=== PATIENT | female | born 1965 | race Caucasian/White ===

== ENCOUNTER 2017-06-16 06:05 | Day surgery (SDC) | payer OTHER ==
--- NOTE | 2017-06-12 18:53 | CONS ---
Date/Time of Note Date/Time of Note DATE: 06/12/17 TIME: 18:46 Assessment/Plan Assessment/Plan Problems: (1) Pre-op evaluation Status: Acute Comment: At this time I find Ms. Toth to be an acceptable surgical candidate and concur with your plans to proceed with surgery. She is at average surgical risk as compared to her age-matched peers and using the modified Reynolds's criteria she is at low to intermediate risk. She should do well using all standard and routine anesthesia precautions. (2) Injury of left Achilles tendon Status: Acute Comment: He is appropriate for intervention and cleared for surgery Qualifiers: Qualified Code: S86.002A - Injury of left Achilles tendon, initial encounter (3) Closed left ankle fracture Status: Acute Comment: She is appropriate for intervention and is cleared for surgery Qualifiers: Qualified Code: S82.892A - Closed fracture of left ankle, initial encounter Consultation Date/Type/Reason Admit Date/Time June 16, 2017 Date of Consultation: Jun 12, 2017 Type of Consultation: Preoperative-internal medicine Reason for Consultation Preoperative Referring Provider: REED VÁZQUEZ MD Hx of Present Illness Generally healthy 51-year-old female with a closed left ankle fracture being brought in for elective surgical repair. He had been a usual state of health and while attending a wedding was dancing with the festivities. She had a slip and fall with left ankle fracture and Achilles tendon disruption. Is in a hard brace and is seen for preop clearance. Medications; 1) levothyroxine 88 mcg a day, 2) progesterone 100 mg p.o. nightly , 3) Vivelle-Dot 0.05 topically daily Constitutional: no complaints Eyes: no complaints ENT: no complaints Respiratory: no complaints Cardiovascular: no complaints Gastrointestinal: no complaints Genitourinary: no complaints Musculoskeletal: other (Pain and limited range of motion at the left ankle) Skin: no complaints Neurologic: no complaints Endocrine: no complaints Lymphatic: no complaints Psychological: nl mood/affect, no complaints Immunologic: no complaints Past Medical History Medical History: hypothyroid, other (Allergic rhinitis; new left ankle fracture with left Achilles tendon disruption; menopausal syndrome) Past Surgical History Past Surgical Hx: other (Status post left hemithyroidectomy 2013-benign) Family History Significant Family History: no pertinent family hx (No history of anesthesia reactions) Social History Alcohol Use: rarely Smoking Status: Never smoker Drug Use: none Other Social History Born in [facility] and raised here [place] degree without experience. 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 [employer] Exam/Review of Systems Vital Signs Vitals Height 5 feet 7 weight 130 blood pressure 114/72 pulse 72 temperature is 98.3 respirations 18 Exam Constitutional: alert, oriented, well developed Head: atraumatic, normocephalic Eyes: EOMI, nl conjunctiva, nl lids ENMT: mucosa pink and moist, nl external ears & nose, nl lips & teeth, nl nasal mucosa & septum Neck: non-tender, other (Surgical scar), supple Respiratory: clear to auscultation, normal air movement Cardiovascular: nl pulses, regular rate and rhythm Gastrointestinal: nl liver, spleen, non-tender, soft Extremities: normal pulses, other (Left lower extremity in full boot) Neurological: [employer] II-XII intact, nl mental status, nl speech, nl strength Skin: nl turgor, rash or lesions Lymph: nl lymph nodes Additional Comments Comprehensive metabolic panel within normal limits white count 4.1 hemoglobin 13.4 hematocrit 43.8 platelet count 306 pro time 11.1 with an INR of 0.93 PTT is 25 seconds urinalysis shows trace blood small leukocyte EKG demonstrates sinus rhythm at 67 with intervals 0.1 6.09.4 130 axis normal morphology chest x -ray is unremarkable Copies To: CC: REED VÁZQUEZ MD, JOSHUA A MD Jun 12, 2017 18:53
[2017-06-13 13:14] VITALS: BMI 20.7
[2017-06-16] VITALS (13 sets, daily range): BP systolic 108–123; BP diastolic 56–70; PULSE 54–70; RESP 16–30; Ht 170.2 cm; Wt 59.0 kg
[~2017-06-16] VITALS: Ht 170.2 cm; Wt 59.0 kg
[~2017-06-16 06:05] MED LIST: ESTR1PAT88 TRANSDERM; LEVO88TA PO; PROG100C3 PO
[2017-06-16] MEDS ORDERED: ACETAMINOPHEN 1000 MG/100 ML IVPB ONE (07:00)
[2017-06-16] MEDS ORDERED: DESFLURANE 15 MIN ONE (07:00)
[2017-06-16] MEDS ORDERED: EPHEDrine SULFATE 50 MG/5 ML SYG ONE (07:00)
[2017-06-16] MEDS ORDERED: POLYMYXIN/BACITRACIN 1L IRRIG ONE (07:18)
[2017-06-16] MEDS ORDERED: NEOMYC/POLYMYX/BACIT 30 GM OINT ONE (07:18)
[2017-06-16] MEDS ORDERED: BUPIVACAINE 0.5% (SDV) 30 ML INJ ONE (07:18)
[2017-06-16] MEDS ORDERED: ROPIVACAINE 0.5 % 30 ML VIAL ONE ×2 (07:18→07:30)
[2017-06-16] MEDS ORDERED: MIDAZOLAM 1 MG/ML 2 ML INJ ONE (07:30)
[2017-06-16] MEDS ORDERED: BUPIVACAINE 0.25% (MPF) 30 ML INJ ONE (07:31)
--- NOTE | 2017-06-16 07:48 | HPN ---
Date/Time of Note Date/Time of Note DATE: 06/16/17 TIME: 07:48 Interval H&P Admission Note Pt. seen H&P reviewed: No system changes REED VÁZQUEZ MD Jun 16, 2017 07:48
[2017-06-16] MEDS ORDERED: morphine 2 MG INJ IV PRN (08:00)
--- NOTE | 2017-06-16 08:07 | RADRPT ---
PROCEDURE: XR Ankle 3 Views. CLINICAL INDICATION: Left ankle pain and trauma, fracture. TECHNIQUE: AP, oblique and lateral views of the left ankle were performed. COMPARISON: None. FINDINGS: Obliquely oriented, mildly displaced fracture through the lateral malleolus is identified. Mild wid ening of the medial aspect of the ankle mortise is seen. No destructive bony lesions are observed. Mild soft tissue swelling is seen over the lateral malleolus. IMPRESSION: Lateral malleolus fracture. Mild widening of the medial aspect of the ankle mortise and may reflect ankle mortise disruption. Soft tissue swelling over the lateral malleolus. Ligamentous and tendinous injury is not excluded. If characterization of the ligaments and tendons is needed MRI is recommended. If there is high clinical suspicion for bony traumatic injury, further evaluation with CT should be considered. RPTAT: AA .Paco Yap MD, Date Time Electronically viewed and signed by .Paco Yap MD, MD on 06/16/2017 08:07 .P/
--- NOTE | 2017-06-16 08:08 | RADRPT ---
PROCEDURE: XR Foot 3 Views. CLINICAL INDICATION: Left foot pain and trauma. TECHNIQUE: AP, oblique and lateral views of the left foot were obtained. The images were reviewed on a PACS workstation. COMPARISON: None. FINDINGS: Obliquely oriented, mildly displaced fracture through the lateral malleolus is identified. Mild wid ening of the medial aspect of the ankle mortise is seen. The remaining osseous structures appear in tact. No destructive bony lesions are identified. The remaining interosseous spaces are unremarkabl e. Soft tissues surrounding the foot appear unremarkable. IMPRESSION: Lateral malleolus fracture. Widening of the medial aspect of the ankle mortise suggesting ankle mortise disruption. If there is high clinical suspicion for additional traumatic injury, further evaluation with CT shou ld be considered. RPTAT: AA .Paco Yap MD, Date Time Electronically viewed and signed by .Paco Yap MD, on 06/16/2017 08:08 .P/
[2017-06-16] MEDS ORDERED: ONDANSETRON 4 MG INJ ONE (08:15)
[2017-06-16] MEDS ORDERED: DEXAMETHASONE 4 MG/ML 1 ML INJ ONE (08:15)
[2017-06-16] MEDS ORDERED: PROPOFOL 20 ML ONE (08:15)
[2017-06-16] MEDS ORDERED: CEFAZOLIN 1 GM INJ ONE (08:15)
[2017-06-16] MEDS ORDERED: LIDOCAINE 2% (SDV) 5 ML INJ ONE (08:15)
[2017-06-16] MEDS ORDERED: SCOPOLAMINE 1.5 MG PATCH ONE (08:15)
[2017-06-16] MEDS ORDERED: METOCLOPRAMIDE 10 MG INJ ONE (08:15)
[2017-06-16] MEDS ORDERED: ROCURONIUM 50 MG INJ ONE (08:15)
[2017-06-16] MEDS ORDERED: GLYCOPYRROLATE 0.4 MG INJ ONE (09:44)
[2017-06-16] MEDS ORDERED: NEOSTIGMINE 3 MG/3 ML SYRINGE ONE (09:44)
[2017-06-16] MEDS ORDERED: FENTAnyl 50 MCG/ML VIAL ONE (09:44)
[2017-06-16] MEDS ORDERED: PROCHLORPERAZINE 10 MG INJ IV PRN (10:00)
[2017-06-16] MEDS ORDERED: LORAZEPAM 2 MG INJ IV PRN (10:00)
[2017-06-16] MEDS ORDERED: DIPHENHYDRAMINE 50 MG INJ IV PRN (10:00)
[2017-06-16] MEDS ORDERED: FENTAnyl 50 MCG/ML VIAL IV PRN (10:00)
[2017-06-16] MEDS ORDERED: MEPERIDINE 25 MG INJ IV PRN (10:00)
[2017-06-16] MEDS ORDERED: oxyCODONE 5 MG TAB PO PRN ×2 (10:00)
[2017-06-16] MEDS ORDERED: HYDROmorphONE (0.2 MG/ML) 10ML SYG IV PRN ×2 (10:00)
[2017-06-16] MEDS ORDERED: ONDANSETRON 4 MG INJ IV PRN (10:00)
--- NOTE | 2017-06-16 11:00 | OPR ---
Date/Time of Note Date/Time of Note DATE: 06/16/17 TIME: 10:56 Operative Report Procedure Date: Jun 16, 2017 Surgeon Grant Vázquez MD Estimated Blood Loss: minimal Transfusion Required: no Specimen: none Pt Condition Post Procedure: stable Disposition: PACU Procedure Description Preoperative Diagnosis left ankle distal lateral malleolus fracture, syndesmotic disruption Postoperative Diagnosis left ankle distal lateral malleolus fracture, syndesmotic disruption Operation Performed 1. left ankle arthroscopy with extensive debridement 2. Left ankle lateral malleolus open reduction internal fixation 3. . Left ankle syndesmosis open reduction internal fixation Surgeon: GRANT VÁZQUEZ MD Anesthesia Type: general, other (popliteal and saphenous block) Anesthesiologist: Dorcas Candelario MD Tourniquet Time: 75 min at 250 mmHg Estimated Blood Loss: 0 - 10 ml's Transfusion Required: no Grafts/Implants Arthrex Titanium distal fibular locking plate Arthrex Titanium TightRope Complications: no Complications: no Pt Condition Post Procedure: stable Disposition: PACU Indications Patient is a 51-year-old female who sustained a left ankle fracture dislocation and given the amount of displacement was indicated for surgery. Operative\Procedure Findings Risk note: patient was explained the risks of surgery in the patients [facility] language including but not limited to - infection, bleeding, injury to blood vessels, ligaments, and tendons, risk of anesthesia, arthritis and DVT/ Patient acknowledged the risks by signing the surgical consent Procedure Description The patient was met in the preoperative holding area, marked with the correct operative extremity confirmed with both patient and consent. The patient was then brought back in the operative theater, placed supine on operative table, given preoperative antibiotics and preoperative regional block anesthesia. The patient was then placed in the arthroscopic thigh aguilar with all bony prominences well padded with a nonsterile tourniquet placed on the operative extremity. The patient was then prepped and draped in the normal sterile fashion. All parties in the room did a timeout and everyone agreed it was the correct patient, and extremity and procedure. Initial distraction was placed across the joint and the superficial peroneal nerve had been marked out prior to distraction, and using extreme caution to avoid any injury to the neurovascular structures, the anteromedial, anterolateral, and posterolateral portals were created in the standard fashion. The arthroscope was brought into the ankle and a 21-point exam was performed showing extensive hemorrhagic scar tissue and synovitis in the ankle with extensive scar tissue in both the medial, lateral, posterior and anterior gutters. The syndesmosis was extensively debrided. After thorough debridement of the anterior medial, lateral, posterior and anterior gutters. After this was done, the ankle was irrigated thoroughly with normal saline and the arthroscopes were removed. At this point, the thigh aguilar was removed and the patient was well padded under both extremities and patient was then reprepped and draped, and all gloves and instruments were changed. Attention was then turned initially to the distal fibular fracture. An incision was made over the the fibula. The incision was taken down to the fibula with care taken to avoid injury to the neurovascular structures. The fracture was identified and reduced and fixated with a 3.0 mm lag screw and then an Arthrex 6 hole distal fibular plate and fibula was reduced and held out to show that there was fibular length and alignment and rotation had been re -achieved. Once this was shown, the wound was irrigated thoroughly. A manual external rotation stress xray was performed showing syndesmosis widening. A syndesmotic tightrope was then placed across the joint to reduce the syndesmosis. Talar tilt stress xray was performed showing deltoid to be intact stress xrays showed no medial clear space widening or talar tilting All wounds were thoroughly irrigated and closed with initially 2-0 Vicryl, followed by 3-0 Monocryl followed by 3-0 nylon in a vertical mattress fashion. Portal sites were closed with a 4-0 Nylon All wounds were dressed with Xeroform, antibiotic ointment, 4 x 4s, 5 ABDs were placed and the patient was placed in a well-padded short leg splint. Tourniquet had been brought down prior to this and hemostasis had been achieved prior to the wound closure. The wounds were irrigated thoroughly prior to closure as well. All sponge and needle counts were correct. GRANT VÁZQUEZ MD Jun 16, 2017 11:00
--- NOTE | 2017-06-16 11:09 | RADRPT ---
PROCEDURE: Intraoperative imaging of the left ankle with fluoroscopy. CLINICAL INDICATION: Left ankle pain. Intraoperative. TECHNIQUE: 13 images of the left ankle were obtained in the operating room with an image intensifi er. No radiologist was in attendance. Fluoroscopy time is 60 seconds. COMPARISON: Plain radiographs of the left ankle and earlier the same date. FINDINGS: Surgical instruments are noted overlying the left ankle. Images demonstrate open reduction and internal fixation of of the distal fibula oblique fracture wit h a lateral plate screws. There is also a fixation device through the distal shaft tibia. IMPRESSION: 1. Intraoperative imaging of the left ankle. RPTAT: QQ .Henrique Yung MD, MD Date Time Electronically viewed and signed by .Henrique Yung MD, on 06/16/2017 11:09 .R/
--- NOTE | 2017-06-18 09:28 | OPPN ---
Date/Time of Note Date/Time of Note DATE: 06/18/17 TIME: 09:25 Anesthesia Follow up Anesthesia Follow up Last documented vital signs Vital Signs Date Time Temp Pulse Resp B/P Pulse Ox O2 Delivery O2 Flow Rate FiO2 06/16/17 11:50 97.0 64 16 121/56 100 Room Air 06/16/17 10:51 2.0 Respiratory function: WNL Cardiovascular function: WNL Comments Pt contacted at number in EMR. Pt is POD 2 s/p L ankle arthroscopy, lateral malleolus ORIF under GETA with adductor canal block and popliteal sciatic nerve block. Pt is recovering at home and is pain controlled with po medications, no n/v due to anesthesia, after block wore off increased po pain meds, took off scopolamine patch yesterday and now with nausea 2/2 pain. Otherwise pt is tolerating ADLs, tolerating orals, doing well and plans for follow-up visit with Dr. Vo next Friday. No complications from anesthesia. ARNIE KO MD Jun 18, 2017 09:28
== END 2017-06-16 14:05 | disposition home or self-care (01) ==
LOC: SDS 06:05
PROVIDERS: ATTEND Orthopaedic Surgery
DX: S82.892A Other fracture of left lower leg, initial encounter for closed fracture (principal); S82.62XD Displaced fracture of lateral malleolus of left fibula, subsequent encounter for closed fracture with routine healing; X58.XXXD Exposure to other specified factors, subsequent encounter; E03.9 Hypothyroidism, unspecified
CPT/HCPCS: 27792; 29898; 73610; 73630; 82306; J0131; J0690; J1100; J2250; J2405; J2710; J2765; J2795; J3010